=== PATIENT | female | born 1985 | race Caucasian/White ===

== ENCOUNTER 2016-05-19 14:44 | Emergency (ER) | payer OTHER, MEDICAID ==
[2016-05-19 15:56] VITALS: BP 137/78; PULSE 81; BMI 29.5
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
== END 2016-05-19 17:03 | disposition home or self-care (01) ==
LOC: EDMC 14:44
DX: M54.5 Low back pain (principal); S39.012A Strain of muscle, fascia and tendon of lower back, initial encounter; V43.62XA Car passenger injured in collision with other type car in traffic accident, initial encounter
CPT/HCPCS: 72110; 99283